=== PATIENT | female | born 1980 | race Caucasian/White ===

== ENCOUNTER 2020-01-19 08:43 | Emergency (ER) | payer OTHER ==
[~2020-01-19] VITALS: Ht 152.4 cm; Wt 56.7 kg
[~2020-01-19 08:43] MED LIST: B-COMPLEX-VITA1 EACH PO; CLEOCIN HCL300 MG PO; CLONAZEPAM; CLONAZEPAM 1 MG1 M1; CLONAZEPAM 1 MG1 M1 PO; ENDOCET 10-3251 EACH PO; FLEXERIL; FLOMAX PO; MS CONTIN 30 MG30 MG PO; NAPROSYN500 MG; NITROFURANTOIN100 MG PO; OXYCONTIN CR 2020 M1; PERCOCET 5-3251 EACH PO; PHENERGAN 25 MG25 MG PO; PHENERGAN25 MG RE; PYRIDIUM100 MG PO
[2020-01-19] MEDS ORDERED: ESCITALOPRA5 MG/5 ML PO (09:19)
[2020-01-19 09:25] LABS: ABSOLUTE BASOPHILS 0.1 thou/uL (0.0-0.2); ABSOLUTE EOSINOPHILS 0.1 thou/uL (0.0-0.7); ABSOLUTE LYMPHOCYTES 1.4 thou/uL (0.8-5.3); ABSOLUTE MONOCYTES 0.6 thou/uL (0.0-1.2); ABSOLUTE NEUTROPHILS 12.2 thou/uL (1.6-8.1); BASOPHILS 0.6 %; EOSINOPHILS 0.6 %; HEMATOCRIT 41.9 % (37.0-47.0); HEMOGLOBIN 14.3 gm/dL (12.0-15.0); LYMPHOCYTES 10.1 %; MCH 30.3 pg (26.0-34.0); MCHC 34.1 g/dL (28.0-37.0); MCV 88.8 fL (80.0-100.0); MONOCYTES 3.9 %; MPV 7.6 fl. (7.2-11.1); NUCLEATED RBCS 0 /100WBC; PLATELET COUNT* 416 thou/uL (150-400); POLYS 84.8 %; RBC 4.72 mil/uL (4.20-5.00); RDW-CV 13.5 % (10.5-14.5); WBC 14.4 thou/uL (4.0-11.0)
[2020-01-19 09:37] LABS: CALCIUM 8.5 mg/dL (8.5-10.1); CREATININE 1.1 mg/dL (0.6-1.3); POTASSIUM 3.6 mmol/L (3.5-5.1)
[2020-01-19 09:41] LABS: ALBUMIN 4.5 g/dL (3.4-5.0); TOTAL BILIRUBIN 0.5 mg/dL (<0.1-1.0); TOTAL PROTEIN 8.5 g/dL (6.4-8.2)
[2020-01-19] MEDS ORDERED: CIPROFLOXACIN500 M1 PO (11:34)
[2020-01-19] MEDS ORDERED: NORCO 5-325 TA1 EAC1 PO (11:34)
[2020-01-19] MEDS ORDERED: FLOMAX0.4 MG PO (11:34)
[2020-01-19 11:55] VITALS: BP 149/72
== END 2020-01-19 11:56 | disposition home or self-care (01) ==
LOC: M.ERS 08:43
PROVIDERS: Family Medicine
DX: N20.0 Calculus of kidney (principal); R11.2 Nausea with vomiting, unspecified; F41.9 Anxiety disorder, unspecified; F32.9 Major depressive disorder, single episode, unspecified; Z88.5 Allergy status to narcotic agent; Z88.8 Allergy status to other drugs, medicaments and biological substances